=== PATIENT | female | born 1990 | race Caucasian/White ===

== ENCOUNTER 2016-07-14 14:39 | Emergency (ER) | payer OTHER | END 2016-07-14 18:07 | disposition home or self-care (01) | LOC: FER 14:39 | DX: S91.111A Laceration without foreign body of right great toe without damage to nail, initial encounter (principal); F90.9 Attention-deficit hyperactivity disorder, unspecified type; F17.210 Nicotine dependence, cigarettes, uncomplicated; Z79.899 Other long term (current) drug therapy; W22.09XA Striking against other stationary object, initial encounter; Y92.009 Unspecified place in unspecified non-institutional (private) residence as the place of occurrence of the external cause | CPT/HCPCS: 73630 ==

== ENCOUNTER 2021-04-02 00:03 | Emergency (ER) | payer OTHER ==
[2021-04-02 01:43] LABS: BASOPHIL 0.5 % (0-2); EOSINOPHIL 0.7 % (0-5); HCT 44.8 % (37.0-47.0); HGB 16.1 g/dl (12.5-16.0); LYMPHOCYTE 39.2 % (15-48); MCH 31.1 pg (25.0-31.0); MCHC 35.9 g/dL (32.0-36.0); MCV 86.5 fL (78.0-100.0); MONOCYTE 5.7 % (0-12); NEUTROPHIL 53.5 % (41-80); NRBC 0; PLT 312 K/uL (150-400); RBC 5.18 M/uL (4.20-5.40); RDW 11.4 % (11.5-14.0); WBC 10.9 K/uL (4.0-10.5)
[2021-04-02 01:49] LABS: BILIRUBIN NEGATIVE (NEGATIVE); BLOOD NEGATIVE Ery/uL (NEGATIVE); CLARITY CLEAR (CLEAR); COLOR YELLOW (YELLOW); GLUCOSE (U) 3+ mg/dL (NORMAL); LEUKOCYTES NEGATIVE Leu/uL (NEGATIVE); NITRITE NEGATIVE (NEGATIVE); PROTEIN NEGATIVE (NEGATIVE); SPECIFIC GRAVITY 1.015 (1.001-1.030); UROBILINOGEN 0.2 mg/dL (0.2-1.0)
[2021-04-02 02:00] LABS: ALBUMIN 3.6 g/dL (3.4-5.0); BILIRUBIN - TOTAL 0.3 mg/dL (0.2-1.0); BUN/CREAT RATIO (CALC) 42.6 RATIO; CREATININE 0.47 mg/dL (0.51-0.95); GLOBULIN (CALCULATION) 4.4 g/dL; POTASSIUM 4.1 mmol/L (3.5-5.1)
== END 2021-04-02 06:10 | disposition home or self-care (01) ==
LOC: FER 00:03
PROVIDERS: Internal Medicine
DX: E11.65 Type 2 diabetes mellitus with hyperglycemia (principal); F17.210 Nicotine dependence, cigarettes, uncomplicated; Z79.84 Long term (current) use of oral hypoglycemic drugs
CPT/HCPCS: 36415; 80053; 81003; 85025; J7030